=== PATIENT | female | born 1975 | race Caucasian/White ===

== ENCOUNTER 2022-04-11 11:37 | Emergency (ER) | payer SELFPAY ==
[~2022-04-11] VITALS: Ht 154 cm; Wt 82.0 kg
[2022-04-11] MEDS ORDERED: diphenhydrAMINE 50 MG/ML INJ (BENADRYL) IV STA (11:45)
[2022-04-11] MEDS ORDERED: METOCLOPRAMIDE INJ 10 MG/2 ML (REGLAN) IVP STA (11:45)
[2022-04-11] MEDS ORDERED: KETOROLAC 30 MG/ML VIAL IVP STA (11:45)
--- NOTE | 2022-04-11 11:45 | ED General ---
General Stated Complaint: HEAD PAIN; RT SIDED FACIAL NUMBNESS History of Present Illness Date Seen by Provider: Apr 11, 2022 Time Seen by Provider: 11:45 Initial Comments 46-year-old female presents with "head pain" she reports that she had A headache and head pain this morning. That she had a really brief episode of what she feels is right sided facial numbness is resolved. She reports she just feels off now and "does not feel right" but is very nonspecific and what that means. She has no focal deficits, facial droop or complaints. She does report she has a history of migraines since she was 17 but reports this is different than any previous migraine she would have had. Allergies and Home Medications Allergies Coded Allergies: Codeine (Unverified Allergy, Unknown, 11/24/06) Patient Home Medication List Home Medication List Reviewed: Yes Review of Systems Review of Systems Constitutional: see HPI; No chills, No fever EENTM: no symptoms reported Respiratory: no symptoms reported Cardiovascular: no symptoms reported Genitourinary: no symptoms reported Musculoskeletal: no symptoms reported Skin: no symptoms reported Psychiatric/Neurological: See HPI, Headache Physical Exam Vital Signs Vital Signs - First Documented 04/11/22 11:45 Temp 36.3 Pulse 69 Resp 16 B/P (MAP) 152/88 (109) Pulse Ox 98 O2 Delivery Room Air Capillary Refill : Height, Weight, BMI Height: '" Weight: lbs. oz. kg; BMI Method: General Appearance: No Apparent Distress, WD/WN HEENT: PERRL/EOMI, TMs Normal, Normal ENT Inspection Neck: Full Range of Motion, Normal Inspection Respiratory: Lungs Clear, Normal Breath Sounds Cardiovascular: Regular Rate, Rhythm, No Edema, Normal Peripheral Pulses Gastrointestinal: Non Tender, Soft Extremity: Normal Capillary Refill, Normal Inspection, Normal Range of Motion, Non Tender Neurologic/Psychiatric: Alert, Oriented x3, No Motor/Sensory Deficits, Normal Mood/Affect, drawing frame tender II-XII Norm as Tested; No Abnormal drawing frame tender II-XII, No Abnormal Gait, No Facial Droop, No Motor Weakness, No Sensory Deficit Skin: Normal Color, Warm/Dry Progress/Results/Core Measures Suspected Sepsis SIRS Temperature: Pulse: Respiratory Rate: Laboratory Tests 04/11/22 11:45: White Blood Count 6.6 Blood Pressure / Mean: Laboratory Tests 04/11/22 11:45: Creatinine 0.80, Platelet Count 273, Total Bilirubin 0.3 Results/Orders Lab Results Laboratory Tests Test 04/11/22 11:45 Range/Units White Blood Count 6.6 4.3-11.0 10^3/uL Red Blood Count 5.23 H 3.80-5.11 10^6/uL Hemoglobin 14.5 11.5-16.0 g/dL Hematocrit 43 35-52 % Mean Corpuscular Volume 82 80-99 fL Mean Corpuscular Hemoglobin 28 25-34 pg Mean Corpuscular Hemoglobin Concent 34 32-36 g/dL Red Cell Distribution Width 12.8 10.0-14.5 % Platelet Count 273 130-400 10^3/uL Mean Platelet Volume 9.2 9.0-12.2 fL Immature Granulocyte % (Auto) 0 % Neutrophils (%) (Auto) 41 L 42-75 % Lymphocytes (%) (Auto) 44 12-44 % Monocytes (%) (Auto) 7 0-12 % Eosinophils (%) (Auto) 7 0-10 % Basophils (%) (Auto) 1 0-10 % Neutrophils # (Auto) 2.7 1.8-7.8 10^3/uL Lymphocytes # (Auto) 2.9 1.0-4.0 10^3/uL Monocytes # (Auto) 0.5 0.0-1.0 10^3/uL Eosinophils # (Auto) 0.5 H 0.0-0.3 10^3/uL Basophils # (Auto) 0.1 0.0-0.1 10^3/uL Immature Granulocyte # (Auto) 0.0 0.0-0.1 10^3/uL Erythrocyte Sedimentation Rate 5 0-20 MM/HR Urine Color YELLOW Urine Clarity CLEAR Urine pH 6.5 5-9 Urine Specific [place] 1.010 L 1.016-1.022 Urine Protein NEGATIVE NEGATIVE Urine Glucose (UA) NEGATIVE NEGATIVE Urine Ketones NEGATIVE NEGATIVE Urine Nitrite NEGATIVE NEGATIVE Urine Bilirubin NEGATIVE NEGATIVE Urine Urobilinogen 0.2 < = 1.0 MG/DL Urine Leukocyte Esterase NEGATIVE NEGATIVE Urine RBC (Auto) NEGATIVE NEGATIVE Urine RBC NONE /HPF Urine WBC 0-2 /HPF Urine Squamous Epithelial Cells 2-5 /HPF Urine Crystals NONE /LPF Urine Bacteria NEGATIVE /HPF Urine Casts NONE /LPF Urine Mucus NEGATIVE /LPF Urine Culture Indicated NO Sodium Level 140 135-145 MMOL/L Potassium Level 4.4 3.6-5.0 MMOL/L Chloride Level 103 98-107 MMOL/L Carbon Dioxide Level 27 21-32 MMOL/L Anion Gap 10 5-14 MMOL/L Blood Urea Nitrogen 11 7-18 MG/DL Creatinine 0.80 0.60-1.30 MG/DL Estimat Glomerular Filtration Rate 93 BUN/Creatinine Ratio 14 Glucose Level 75 70-105 MG/DL Calcium Level 9.8 8.5-10.1 MG/DL Corrected Calcium 9.5 8.5-10.1 MG/DL Total Bilirubin 0.3 0.1-1.0 MG/DL Aspartate Amino Transf (AST/SGOT) 19 5-34 U/L Alanine Aminotransferase (ALT/SGPT) 15 0-55 U/L Alkaline Phosphatase 65 40-136 U/L C-Reactive Protein < 0.30 <0.50 MG/DL Total Protein 7.3 6.4-8.2 GM/DL Albumin 4.4 3.2-4.5 GM/DL Influenza Type A (RT-PCR) Not Detected Not Detecte Influenza Type B (RT-PCR) Not Detected Not Detecte SARS-CoV-2 RNA (RT-PCR) Not Detected Not Detecte My Orders Orders - CONCEPCION,WU L DO Cbc With Automated Diff (04/11/22 11:45) Comprehensive Metabolic Panel (04/11/22 11:45) Thyroid Stimulating Hormone (04/11/22 11:45) Ua Culture If Indicated (04/11/22 11:45) Influenza A And B By Pcr (04/11/22 11:45) Erythrocyte Sedimentation Rate (04/11/22 11:45) Crp Fs (04/11/22 11:45) Covid 19 Inhouse Test (04/11/22 11:45) Metoclopramide Injection (Reglan Injecti (04/11/22 11:45) Ketorolac Injection (Toradol Injection) (04/11/22 11:45) Diphenhydramine Injection (Benadryl Inje (04/11/22 11:45) Ct Head Wo (04/11/22 11:49) Vital Signs/I&O 04/11/22 11:45 Temp 36.3 Pulse 69 Resp 16 B/P (MAP) 152/88 (109) Pulse Ox 98 O2 Delivery Room Air Capillary Refill : Progress Note : Progress Note Patient's diagnostic tests were ordered and reviewed and interpreted by me. Patient's radiologic study/CT was initially reviewed by me then reviewed radiology's report for final interpretation. Patient had no acute findings on CT exam, laboratory test, physical exam. Patient did report when I was visit with her results that she just restarted her hormone replacement therapy yesterday. Discussed with her that this may be contributing to her symptoms. However with her history of migraines she is very consistent with a atypical migraine with an aura. We will give her some medication to see if that helps her symptoms. She is stable and discharged home. She should follow-up with her primary care provider for further outpatient evaluation Diagnostic Imaging Diagonstic Imaging: CT Plain Films/CT/US/NM/MRI: head Comments Date of Exam:04/11/22 CT HEAD WO PROCEDURE: CT head without contrast. TECHNIQUE: Multiple contiguous axial images were obtained through the brain without the use of intravenous contrast. Auto Exposure Controls were utilized during the CT exam to meet ALARA standards for radiation dose reduction. INDICATION: Headache and right facial numbness. No prior studies are available for comparison. FINDINGS: The ventricles and sulci are within normal limits. No sulcal effacement or midline shift is identified. No acute intra-axial or extra-axial hemorrhage is detected. Cisterns are patent. Visualized paranasal sinuses are clear. IMPRESSION: No acute intracranial process is detected. Reviewed: Reviewed by Me, Reviewed/Discussed Departure Impression Primary Impression: Atypical migraine Disposition: 01 HOME, SELF-CARE Condition: Stable Departure-Patient Inst. Referrals: NO,LOCAL PHYSICIAN (PCP/Family) Primary Care Physician Patient Instructions: Migraines (DC) Add. Discharge Instructions: Please follow-up with your primary care provider for further outpatient e valuation and testing. They may decide to refer you to a specialist such as a neurologist or home school liaison officer WU CONCEPCION DO Apr 11, 2022 11:45
[2022-04-11 11:56] LABS: BILIRUBIN,URINE NEGATIVE (NEGATIVE); CLARITY,URINE CLEAR; COLOR,URINE YELLOW; GLUCOSE, URINE (UA) NEGATIVE (NEGATIVE); KETONES,URINE NEGATIVE (NEGATIVE); LEUKOCYTE ESTERASE ,URINE NEGATIVE (NEGATIVE); NITRITE,URINE NEGATIVE (NEGATIVE); PH,URINE 6.5 (5-9); PROTEIN,URINE NEGATIVE (NEGATIVE)
[2022-04-11 11:57] LABS: BASOPHILS # (AUTO) 0.1 10^3/uL (0.0-0.1); BASOPHILS % (AUTO) 1 % (0-10); EOSINOPHILS # (AUTO) 0.5 10^3/uL (0.0-0.3); EOSINOPHILS % (AUTO) 7 % (0-10); HEMATOCRIT 43 % (35-52); HEMOGLOBIN 14.5 g/dL (11.5-16.0); LYMPHOCYTES # (AUTO) 2.9 10^3/uL (1.0-4.0); LYMPHOCYTES % (AUTO) 44 % (12-44); MEAN CORPUSCULAR HEMOGLOBIN 28 pg (25-34); MEAN CORPUSCULAR HGB CONC 34 g/dL (32-36); MEAN CORPUSCULAR VOLUME 82 fL (80-99); MEAN PLATELET VOLUME 9.2 fL (9.0-12.2); MONOCYTES # (AUTO) 0.5 10^3/uL (0.0-1.0); MONOCYTES % (AUTO) 7 % (0-12); NEUTROPHILS # (AUTO) 2.7 10^3/uL (1.8-7.8); NEUTROPHILS % (AUTO) 41 % (42-75); PLATELET COUNT 273 10^3/uL (130-400); WHITE BLOOD COUNT 6.6 10^3/uL (4.3-11.0)
--- NOTE | 2022-04-11 12:16 | Diagnostic Imaging Report ---
PROCEDURE: CT head without contrast. TECHNIQUE: Multiple contiguous axial images were obtained through the brain without the use of intravenous contrast. Auto Exposure Controls were utilized during the CT exam to meet ALARA standards for radiation dose reduction. INDICATION: Headache and right facial numbness. No prior studies are available for comparison. FINDINGS: The ventricles and sulci are within normal limits. No sulcal effacement or midline shift is identified. No acute intra-axial or extra-axial hemorrhage is detected. Cisterns are patent. Visualized paranasal sinuses are clear. IMPRESSION: No acute intracranial process is detected. Dictated by: Dictated on workstation # [id number]
[2022-04-11 12:18] LABS: BACTERIA,URINE NEGATIVE /HPF; WBC,URINE 0-2 /HPF
[2022-04-11 12:19] LABS: ERYTHROCYTE SEDIMENTATION RATE 5 MM/HR (0-20)
[2022-04-11 12:28] LABS: ALANINE AMINOTRANSFERASE 15 U/L (0-55); ALBUMIN 4.4 GM/DL (3.2-4.5); ALKALINE PHOSPHATASE 65 U/L (40-136); BILIRUBIN,TOTAL 0.3 MG/DL (0.1-1.0); BUN/CREATININE RATIO 14; CALCIUM 9.8 MG/DL (8.5-10.1); CARBON DIOXIDE 27 MMOL/L (21-32); CHLORIDE 103 MMOL/L (98-107); GFR ESTIMATED 93; GLUCOSE 75 MG/DL (70-105); SODIUM 140 MMOL/L (135-145); TOTAL PROTEIN 7.3 GM/DL (6.4-8.2)
[2022-04-11 12:34] LABS: POTASSIUM 4.4 MMOL/L (3.6-5.0)
[2022-04-11 12:54] VITALS: BP 154/86
== END 2022-04-11 12:56 | disposition home or self-care (01) ==
LOC: EDUNIT# 11:37 → ER FS 11:39
DX: G43.809 Other migraine, not intractable, without status migrainosus (principal); Z20.822 Contact with and (suspected) exposure to COVID-19
CPT/HCPCS: 36415; 70450; 80053; 81000; 84443; 85025; 85652; 86141; 87636; 96374; 96375